=== PATIENT | female | born 1975 | race Caucasian/White ===

== ENCOUNTER 2020-11-06 13:40 | Emergency (ER) | payer SELFPAY ==
--- NOTE | 2020-11-06 16:07 | RAD REPORT ---
EXAM DESCRIPTION: CT - Head C Spine Cap Wo Con - 11/06/2020 3:42 pm TECHNIQUE: Computed axial tomography of the head and cervical spine was obtained. Coronal and sagitt al reconstruction was performed Computed axial tomography of the chest, abdomen and pelvis was obtained. Contrast was not requested. All CT scans are performed using dose optimization technique as appropriate and may include automated exposure control or mA/KV adjustment according to patient size. CLINICAL HISTORY: Head and neck injury with chest and abdominal pain status post fall COMPARISON: None FINDINGS: An intracranial bleed is not seen. The ventricles are normal in caliber. An extra-axial fluid collection is not noted. . Fluid within the sinuses/mastoids is not seen. A cervical fracture is not seen. No dislocation is noted. The evaluation of mediastinum, radha, vessels, solid organs and bowel are limited secondary to the lac k of contrast administration. A mediastinal hematoma is not noted. A pleural effusion is not seen. A lung contusion is not present. The liver,spleen, pancreas, adrenals,kidneys and bladder do not demonstrate a traumatic injury IMPRESSION: 1. No acute intracranial abnormality is seen. 2. A cervical fracture is not visualized. If the patient continues have symptoms to suggest intracran ial/spinal cord pathology MRI be recommended 3. No traumatic abnormality involving the chest/abdomen/pelvis.
--- NOTE | 2020-11-06 17:00 | ER ---
Nurse's Notes [facility] Name: Kathryn Zavala Age: 44 yrs Sex: Female : 1975 Arrival Date: 11/06/2020 Time: 13:43 Bed 20 Private MD: Diagnosis: Strain of muscle and tendon of back wall of thorax;Strain of muscle, fascia and tendon of lower back Presentation: 11/06 14:03 Chief complaint: Patient states: Slipped on wet steps this morning at 4 am. Bilateral ll1 elbows, back of head pain, buttocks pain since. BP has been elevated off/on all day. + lightheaded. No LOC. Coronavirus screen: Client denies travel out of the [place] in the last 14 days. At this time, the client does not indicate any symptoms associated with coronavirus-19. Ebola Screen: Patient denies travel to an Ebola-affected area in the 21 days before illness onset. Initial Sepsis Screen: Does the patient meet any 2 criteria? No. Patient's initial sepsis screen is negative. Does the patient have a suspected source of infection? No. Patient's initial sepsis screen is negative. Risk Assessment: Do you want to hurt yourself or someone else? Patient reports no desire to harm self or others. Onset of symptoms was November 06, 2020. 14:03 Method Of Arrival: Ambulatory ll1 14:03 Acuity: KAYLIN 3 ll1 Historical: - Allergies: 14:05 Sulfa (Sulfonamide Antibiotics); ll1 - PMHx: 14:05 Anemia; back/neck FX; ll1 - PSHx: 14:05 breast augmentation; section; ll1 - Immunization history:: Flu vaccine is not up to date. - Social history:: Smoking status: Patient denies any tobacco usage or history of. Screenin:49 Abuse screen: Denies threats or abuse. Denies injuries from another. Nutritional tr6 screening: No deficits noted. Tuberculosis screening: No symptoms or risk factors identified. Fall Risk Fall in past 12 months (25 points). Assessment: 17:07 General: Appears in no apparent distress. Behavior is calm, cooperative, appropriate tr6 for age. Pain: Denies pain. Neuro: No deficits noted. Cardiovascular: No deficits noted. Respiratory: No deficits noted. GI: No deficits noted. : No deficits noted. EENT: No deficits noted. Derm: No deficits noted. Musculoskeletal: No deficits noted. Vital Signs: 14:03 BP 127 / 84; Pulse 74; Resp 17; Temp 98.1; Pulse Ox 99% ; Weight 79.38 kg; Height 5 ft. ll1 3 in. (160.02 cm); Pain 6/10; 14:03 Body Mass Index 31.00 (79.38 kg, 160.02 cm) ll1 ED Course: 13:43 Patient arrived in ED. mr 14:05 Triage completed. ll1 14:06 Arm band placed on. ll1 14:55 Patient placed in an exam room, on a stretcher. ll1 15:00 Mark Silverman PA is PHCP. [facility] 15:00 Toi Sanchez MD is Attending Physician. [facility] 15:42 CT Traumagram (Head C Spine CAP wo con) In Process Unspecified. EDMS 15:46 Vane Harden, GÉNESIS is Primary Nurse. tr6 15:[address] Scan. tr6 15:49 Patient has correct armband on for positive identification. Bed in low position. Call tr6 light in reach. Side rails up X 1. Pulse ox on. NIBP on. Door closed. Noise minimized. Visitors limited. Lights dimmed. Moved to private room. 15:49 No provider procedures requiring assistance completed. Patient did not have IV access tr6 during this emergency room visit. Administered Medications: No medications were administered Outcome: 16:59 Discharge ordered by . [facility] 17:07 Patient left the ED. tr6 Signatures: Dispatcher [employer] EDCA Mark Silverman PA PA jmm Rivera, Mary Anderson Gibson, RN RN 1 Vane Harden, RN RN tr6
--- NOTE | 2020-11-06 17:00 | EDPHYS ---
Physician Documentation [facility] Name: Kathryn Zavala Age: 44 yrs Sex: Female : 1975 Arrival Date: 11/06/2020 Time: 13:43 Bed 20 Private MD: ED Physician Toi Sanchez HPI: 11/06 14:05 This 44 yrs old Female presents to ER via Ambulatory with complaints of Fall jmm Injury, High Blood Pressure. 14:05 Details of fall: The patient fell from an upright position, while walking. Onset: The jmm symptoms/episode began/occurred acutely, this morning. Associated injuries: The patient sustained injury to the head, neck injury, upper back injury, injury to the low back. It is unknown whether or not the patient has had similar symptoms in the past. Patient states she slipped down multiple steps. States she has felt "foggy" since injury. Pain mainly on the right side of the back from the cervical spine down to the coccygeal region. . Historical: - Allergies: 14:05 Sulfa (Sulfonamide Antibiotics); ll1 - PMHx: 14:05 Anemia; back/neck FX; ll1 - PSHx: 14:05 breast augmentation; section; ll1 - Immunization history:: Flu vaccine is not up to date. - Social history:: Smoking status: Patient denies any tobacco usage or history of. ROS: 14:05 Constitutional: Negative for fever, chills, and weight loss, Cardiovascular: Negative jmm for chest pain, palpitations, and edema, Respiratory: Negative for shortness of breath, cough, wheezing, and pleuritic chest pain. 14:05 Back: Positive for pain with movement. 14:05 Neuro: Positive for headache. 14:05 All other systems are negative. Exam: 14:05 Constitutional: This is a well developed, well nourished patient who is awake, alert, jmm and in no acute distress. Head/Face: atraumatic. Eyes: EOMI, no conjunctival erythema appreciated ENT: Moist Mucus Membranes Neck: Trachea midline, Supple Chest/axilla: Normal chest wall appearance and motion. Cardiovascular: Regular rate and rhythm. No edema appreciated Respiratory: Normal respirations, no respiratory distress appreciated Abdomen/GI: Non distended, soft 14:05 MS/ Extremity: Moves all extremities, no obvious deformities appreciated, no edema noted to the lower extremities Neuro: Awake and alert, normal gait Psych: Behavior is normal, Mood is normal, Patient is cooperative and pleasant 14:05 Back: diffuse vert pt tenderness from the cervical spine to the coccygeal region, ecchymosis noted to the buttocks. . Vital Signs: 14:03 BP 127 / 84; Pulse 74; Resp 17; Temp 98.1; Pulse Ox 99% ; Weight 79.38 kg; Height 5 ft. ll1 3 in. (160.02 cm); Pain 6/10; 14:03 Body Mass Index 31.00 (79.38 kg, 160.02 cm) ll1 MDM: 15:10 Patient medically screened. [facility] 16:58 Data reviewed: vital signs, nurses notes. Counseling: I had a detailed discussion with jmstef the patient and/or guardian regarding: the historical points, exam findings, and any diagnostic results supporting the discharge/admit diagnosis, radiology results, the need for outpatient follow up, to return to the emergency department if symptoms worsen or persist or if there are any questions or concerns that arise at home. 11/06 15:18 Order name: CT Traumagram (Head C Spine CAP wo con); Complete Time: 16:15 jm Administered Medications: No medications were administered Disposition: 17:14 Co-signature as Attending Physician, Toi Sanchez MD I agree with the assessment and kdr plan of care. Disposition Summary: 11/06/20 16:59 Discharge Ordered Location: Home [facility] Condition: Stable [facility] Diagnosis - Strain of muscle and tendon of back wall of thorax jmm - Strain of muscle, fascia and tendon of lower back [facility] Followup: [facility] - With: Private Physician - When: 2 - 3 days - Reason: Recheck today's complaints, Continuance of care, Re-evaluation by your physician Discharge Instructions: - Discharge Summary Sheet [facility] - Thoracic Strain jmm - Lumbar Strain [facility] Forms: - Medication Reconciliation Form [facility] - Thank You Letter [facility] - Antibiotic Education m - Prescription Opioid Use [facility] Prescriptions: - orphenadrine citrate 100 mg Oral Tablet Sustained Release - take 1 tablet by ORAL route 2 times per day As needed; 20 tablet; Refills: 0, jm Product Selection Permitted Signatures: Dispatcher [employer] EDToi Darden MD MD kdr Mickail, Joel, PA PA jmm Anderson Gibson, RN RN ll1
[2020-11-06 17:13] VITALS: BP 127/84; TEMP 98.1; O2SAT 99
== END 2020-11-06 17:07 | disposition home or self-care (01) ==
LOC: ER 13:40
DX: S39.012A Strain of muscle, fascia and tendon of lower back, initial encounter (principal); S29.012A Strain of muscle and tendon of back wall of thorax, initial encounter; W10.8XXA Fall (on) (from) other stairs and steps, initial encounter; Y93.01 Activity, walking, marching and hiking; Z98.82 Breast implant status; Z88.2 Allergy status to sulfonamides
CPT/HCPCS: 70450; 71250; 72125; 99283

== ENCOUNTER 2021-02-04 15:59 | Emergency (ER) | payer SELFPAY ==
[2021-02-04 16:18] LABS: Urine Blood Negative (Negative); Urine Glucose Negative (Negative); Urine Protein Negative (Negative)
--- NOTE | 2021-02-04 17:30 | RAD REPORT ---
EXAM DESCRIPTION: CT - CTHCSPWOC - 02/04/2021 5:06 pm CLINICAL HISTORY: PAIN, head and neck injury, pain secondary to fall several days earlier. COMPARISON: No comparisons TECHNIQUE: Axial 5 mm thick images of the head were obtained. Axial 2 mm thick images of the cervic al spine were obtained with sagittal and coronal reconstruction images generated and reviewed. All CT scans are performed using dose optimization technique as appropriate and may include automated exposure control or mA/KV adjustment according to patient size. FINDINGS: No intracranial hemorrhage, mass, edema or acute intracranial finding. No suspicion for ac [place] infarction. No extra-axial fluid collections. Mastoid air cells and paranasal sinuses are clear. No globe or orbit abnormality seen. Cervical bodies are normal in height. No subluxation abnormality. Straightening and slight reversal o f the usual cervical lordosis could be from muscle spasm, positioning artifact for image acquisition or a combination. No disk space narrowing. No fracture or acute bony abnormality. Central canal deta il is inherently limited. No paraspinal mass or hematoma. IMPRESSION: Negative CT head examination for acute or significant finding. Negative CT cervical spine examination for acute or significant finding.
--- NOTE | 2021-02-04 18:08 | RAD REPORT ---
EXAM DESCRIPTION: RAD - Shoulder Left 2 View - 02/04/2021 5:33 pm CLINICAL HISTORY: PAIN COMPARISON: No comparisons TECHNIQUE: Internal and external rotation views of the left shoulder were obtained. FINDINGS: There is no fracture or dislocation. AC joint is normal in appearance. No acute or suspici ous findings. IMPRESSION: Negative two-view left shoulder examination for acute findings.
--- NOTE | 2021-02-04 18:09 | RAD REPORT ---
EXAM DESCRIPTION: RAD - Elbow Left 3 View - 02/04/2021 5:34 pm CLINICAL HISTORY: PAIN, fall COMPARISON: None. FINDINGS: No fracture is identified and no elevated posterior fat pad. There is no dislocation or pe riosteal reaction noted. No foreign body in the soft tissues. Contusion or edema changes are present along the posterior forearm. IMPRESSION: Negative left elbow examination.
--- NOTE | 2021-02-04 18:12 | RAD REPORT ---
EXAM DESCRIPTION: RAD - Forearm Left - 02/04/2021 5:33 pm CLINICAL HISTORY: PAIN COMPARISON: None. FINDINGS: No fracture is identified. There is no dislocation or periosteal reaction noted. No foreign body in the soft tissues. Contusion and edema changes are present posterior margin of the forearm. IMPRESSION: Soft tissue contusion and edema changes. No acute bone or joint finding.
--- NOTE | 2021-02-04 18:39 | ER ---
Nurse's Notes [facility] Name: Kathryn Zavala Age: 45 yrs Sex: Female : 1975 Arrival Date: 02/04/2021 Time: 16:01 Bed 7 Private MD: Diagnosis: Strain of muscle, fascia and tendon at neck level;Headache;Contusion of left forearm;Contusion of left buttock Presentation: 02/04 16:05 Risk Assessment: Do you want to hurt yourself or someone else? Patient reports no sv desire to harm self or others. 16:05 Method Of Arrival: Ambulatory sv 16:06 Chief complaint: Patient states: fell down about 11 stairs on Wednesday, unknown LOC. sv c/o dizziness, nausea, headache, L arm pain and L neck since then. Pt has bruising to her left buttock and R elbow. Reports blurry vision but has hx of glaucoma. Ebola Screen: No symptoms or risks identified at this time. Onset of symptoms was February 01, 2021. 16:06 Acuity: KAYLIN 3 sv 16:08 Coronavirus screen:. Initial Sepsis Screen: Does the patient meet any 2 criteria? No. sv Patient's initial sepsis screen is negative. Does the patient have a suspected source of infection? No. Patient's initial sepsis screen is negative. Triage Assessment: 16:05 General: Appears in no apparent distress. Behavior is calm, cooperative. Neuro: Level sv of Consciousness is awake, alert, obeys commands, Gait is steady. Respiratory: Respiratory effort is even, unlabored. Historical: - Allergies: 16:04 Sulfa (Sulfonamide Antibiotics); sv - PMHx: 16:04 Anemia; back/neck FX; sv - PSHx: 16:04 breast augmentation; section; sv - Immunization history:: Adult Immunizations up to date. - Social history:: Smoking status: Patient denies any tobacco usage or history of. Screenin:00 Abuse screen: Denies threats or abuse. Denies injuries from another. Nutritional hb screening: No deficits noted. Tuberculosis screening: No symptoms or risk factors identified. Fall Risk None identified. Assessment: 15:35 General: Appears in no apparent distress. Behavior is calm, cooperative. Pain: Pain hb currently is 6 out of 10 on a pain scale. Neuro: Level of Consciousness is awake, alert, obeys commands, Oriented to person, place, time, situation. Cardiovascular: Patient's skin is warm and dry. Respiratory: Respiratory effort is even, unlabored, Respiratory pattern is regular, symmetrical. GI: No signs and/or symptoms were reported involving the gastrointestinal system. : No signs and/or symptoms were reported regarding the genitourinary system. EENT: No signs and/or symptoms were reported regarding the EENT system. Derm: No signs and/or symptoms reported regarding the dermatologic system. Musculoskeletal: Reports pain in left arm, left shoulder neck, and back. 16:45 Reassessment: Patient appears in no apparent distress at this time. Patient and/or hb family updated on plan of care and expected duration. Pain level reassessed. Patient is alert, oriented x 3, equal unlabored respirations, skin warm/dry/pink. 17:43 Reassessment: Patient appears in no apparent distress at this time. Patient and/or hb family updated on plan of care and expected duration. Pain level reassessed. Patient is alert, oriented x 3, equal unlabored respirations, skin warm/dry/pink. 18:25 Reassessment: Patient appears in no apparent distress at this time. Patient and/or hb family updated on plan of care and expected duration. Pain level reassessed. Patient is alert, oriented x 3, equal unlabored respirations, skin warm/dry/pink. Vital Signs: 16:08 BP 132 / 80; Pulse 72; Resp 16; Temp 98.2; Pulse Ox 99% ; Weight 77.11 kg; Height 5 ft. sv 3 in. (160.02 cm); Pain 6/10; 16:08 Body Mass Index 30.11 (77.11 kg, 160.02 cm) sv ED Course: 16:00 Patient has correct armband on for positive identification. Bed in low position. hb 16:01 Patient arrived in ED. as 16:04 Arm band placed on. sv 16:08 Triage completed. sv 16:36 Daquan Rodriguez NP is PHCP. pm1 16:36 Mitchel Becerra MD is Attending Physician. pm1 17:06 CT Head C Spine In Process Unspecified. EDMS 17:33 Forearm Left XRAY In Process Unspecified. EDMS 17:33 Shoulder Left (2 View) XRAY In Process Unspecified. EDMS 17:33 Elbow Left 3 View XRAY In Process Unspecified. EDMS 17:41 Assisted to bathroom. mb4 17:42 Anita Quan, RN is Primary Nurse. hb 19:07 No provider procedures requiring assistance completed. Patient did not have IV access hb during this emergency room visit. Administered Medications: No medications were administered Outcome: 18:38 Discharge ordered by MD. pm1 19:07 Discharged to home ambulatory. hb 19:07 Condition: stable 19:07 Discharge instructions given to patient, Instructed on discharge instructions, follow up and referral plans. medication usage, Demonstrated understanding of instructions, follow-up care, medications. 19:08 Patient left the ED. hb Signatures: Dispatcher [employer] EDGA Devi Lemons RN RN sv Martinez, Amelia as Marinas, Patrick, REJI DYNAMO TENDER pm1 Anita Quan RN RN Yue Quan mb4 Corrections: (The following items were deleted from the chart) 16:10 16:06 Chief complaint: Patient states: fell down about 11 stairs on Wednesday, unknown sv LOC. c/o dizziness, nausea, headache since then. sv 16:10 16:06 Chief complaint: Patient states: fell down about 11 stairs on Wednesday, unknown sv LOC. c/o dizziness, nausea, headache, L arm pain and L neck since then. Pt has bruising to her left buttock and R elbow. sv 16:10 16:08 Pulse 72bpm; Resp 16bpm; Pulse Ox 99%; Temp 98.2F; 77.11 kg; Height 5 ft. 3 in.; sv BMI: 30.1; Pain 6/10; sv
--- NOTE | 2021-02-04 18:39 | EDPHYS ---
Physician Documentation [facility] Name: Kathryn Zavala Age: 45 yrs Sex: Female : 1975 Arrival Date: 02/04/2021 Time: 16:01 Bed 7 Private MD: ED Physician Mitchel Becerra HPI: 02/04 17:03 This 45 yrs old Female presents to ER via Ambulatory with complaints of Fall pm1 Injury - 02/01, Headache, Dizziness, Nausea. 17:03 Details of fall: The patient fell from an upright position, while walking, Downstairs. pm1 Onset: The symptoms/episode began/occurred 3 day(s) ago. Associated injuries: The patient sustained injury to the head, pain, left gluteus britney, anterior aspect of left shoulder and palmar aspect of left forearm, contusion, Tenderness. Severity of symptoms: in the emergency department the symptoms are unchanged. The patient has not experienced similar symptoms in the past. The patient has not recently seen a physician. Patient taking her dog out and slipped on wet stairs and and landed herleft buttocks. Patient denies hitting her head but patient with headache and neck pain. Patient with left forearm and left shoulder pain. Historical: - Allergies: 16:04 Sulfa (Sulfonamide Antibiotics); sv - PMHx: 16:04 Anemia; back/neck FX; sv - PSHx: 16:04 breast augmentation; section; sv - Immunization history:: Adult Immunizations up to date. - Social history:: Smoking status: Patient denies any tobacco usage or history of. ROS: 17:03 Constitutional: Negative for fever, chills, and weight loss. pm1 17:03 Neck: Negative for injury, pain, and swelling, Cardiovascular: Negative for chest pain, palpitations, and edema, Respiratory: Negative for shortness of breath, cough, wheezing, and pleuritic chest pain, Abdomen/GI: Negative for abdominal pain, nausea, vomiting, diarrhea, and constipation, Back: Negative for injury and pain. 17:03 Skin: Negative for injury, rash, and discoloration. 17:03 Eyes: Negative for Visual change. 17:03 MS/extremity: Positive for pain, of the left arm. 17:03 Neuro: Positive for headache, of the forehead and occipital area. 17:03 All other systems are negative. Exam: 17:03 Constitutional: This is a well developed, well nourished patient who is awake, alert, pm1 and in no acute distress. 17:03 Head/face: Noted is no obvious of injury or deformity except tenderness, that is mild, of the forehead, left occipital area and right occipital area. 17:03 Eyes: Exam is negative for acute changes, Extraocular movements: no acute changes, Conjunctiva: no acute changes, no injection. 17:03 ENT: Exam is negative for acute changes, Mouth: Lips: normal, moist, Oral mucosa: normal, pink and intact, moist. 17:03 Neck: Exam negative for acute changes, External neck: is normal, no swelling, no tenderness, C-spine: vertebral tenderness, is not appreciated. 17:03 Cardiovascular: Exam negative for acute changes, Rate: normal, Rhythm: regular, Pulses: no pulse deficits are appreciated. 17:03 Respiratory: Exam negative for acute changes, respiratory distress, shortness of breath. 17:03 Back: normal spinal alignment noted, vertebral tenderness, is not appreciated, muscle spasm, is not present. 17:03 Musculoskeletal/extremity: Extremities: grossly normal except: noted in the palmar aspect of left forearm: contusion, tenderness, There is no evidence of decreased ROM, deformity, noted in the anterior aspect of left shoulder: tenderness, no evidence of decreased ROM, deformity, noted in the left gluteus britney: ecchymosis. 17:03 Skin: Exam negative for laceration. 17:03 Neuro: Orientation: is normal, Mentation: is normal, Motor: moves all fours, Gait: is steady, at a normal pace, without difficulty. Vital Signs: 16:08 BP 132 / 80; Pulse 72; Resp 16; Temp 98.2; Pulse Ox 99% ; Weight 77.11 kg; Height 5 ft. sv 3 in. (160.02 cm); Pain 6/10; 16:08 Body Mass Index 30.11 (77.11 kg, 160.02 cm) sv MDM: 16:36 Patient medically screened. pm1 16:43 Data reviewed: vital signs. Data interpreted: Pulse oximetry: on room air is 99 %. pm1 Interpretation: normal. 16:44 ED course: Refused pain medications offered in the ER. Patient intends to take Tylenol pm1 at home as needed. 18:31 Counseling: I had a detailed discussion with the patient and/or guardian regarding: the pm1 historical points, exam findings, and any diagnostic results supporting the discharge/admit diagnosis, lab results, radiology results, the need for outpatient follow up, a orthopedic surgeon, to return to the emergency department if symptoms worsen or persist or if there are any questions or concerns that arise at home. 02/04 16:17 Order name: Urine Dipstick-Ancillary; Complete Time: 16:37 EDMS 02/04 16:20 Order name: Urine --Ancillary (enter results); Complete Time: 16:37 bd 02/04 16:44 Order name: Forearm Left XRAY; Complete Time: 18:30 pm1 02/04 16:44 Order name: Shoulder Left (2 View) XRAY; Complete Time: 18:30 pm1 02/04 16:44 Order name: Elbow Left 3 View XRAY; Complete Time: 18:30 pm1 02/04 16:44 Order name: CT Head C Spine; Complete Time: 18:30 pm1 02/04 18:30 Order name: Sling; Complete Time: 19:07 pm1 Administered Medications: No medications were administered Disposition Summary: 02/04/21 18:38 Discharge Ordered Location: Home pm1 Problem: new pm1 Symptoms: have improved pm1 Condition: Stable pm1 Diagnosis - Strain of muscle, fascia and tendon at neck level pm1 - Headache pm1 - Contusion of left forearm pm1 - Contusion of left buttock pm1 Followup: pm1 - With: Emergency Department - When: As needed - Reason: Worsening of condition Followup: pm1 - With: Private Physician - When: 2 - 3 days - Reason: Recheck today's complaints, Continuance of care, Re-evaluation by your physician Discharge Instructions: - Discharge Summary Sheet pm1 - Contusion pm1 - General Headache Without Cause pm1 - Muscle Strain pm1 - How to Use a Sling pm1 Forms: - Medication Reconciliation Form pm1 - Thank You Letter pm1 - Antibiotic Education pm1 - Prescription Opioid Use pm1 Addendum: 02/07/2021 08:38 Co-signature as Attending Physician, Mitchel Becerra MD I agree with the assessment and r n plan of care. Attestation: The patient's history, exam findings, diagnostics, and a summary of any interventions or procedures was reviewed in detail with Daquan Rodriguez NP. Signatures: Dispatcher [employer] Devi Castañeda, Mitchel Gillis RN, MD MD rn Marinas, Patrick, NP EXPERIMENTAL ASSEMBLER pm1 Anita Quan RN RN hb
[2021-02-04 19:13] VITALS: BP 132/80; TEMP 98.2; O2SAT 99
== END 2021-02-04 19:08 | disposition home or self-care (01) ==
LOC: ER 15:59
DX: S16.1XXA Strain of muscle, fascia and tendon at neck level, initial encounter (principal); S50.12XA Contusion of left forearm, initial encounter; S30.0XXA Contusion of lower back and pelvis, initial encounter; W10.8XXA Fall (on) (from) other stairs and steps, initial encounter; Y93.K1 Activity, walking an animal; Z98.82 Breast implant status; Z88.2 Allergy status to sulfonamides
CPT/HCPCS: 70450; 72125; 81003; 81025; 99283